=== PATIENT | male | born 1950 | race African-American/Black ===

== ENCOUNTER 2018-11-07 07:32 | Emergency (ER) | payer MEDICARE ==
[2018-11-07 08:04] LABS: #Basophils 0.1 thou/uL (0.0-0.2); #Eosinphils 0.1 thou/uL (0.0-0.7); #Lymphocytes 1.5 thou/uL (1.20-3.40); #Monocytes 0.4 thou/uL (0.11-0.59); #Neutrophils 4.4 thou/uL (1.40-6.50); %Basophils 1.6 % (0.0-1.0); %Eosinophils 0.9 % (0.0-10.0); %Lymphocytes 23.5 % (21.0-51.0); %Monocytes 6.2 % (0.0-10.0); %Neutrophils 67.7 % (42.0-75.0); Hemoglobin 15.5 g/dL (14.0-18.0); Mean Corpuscular HGB CONC 33.4 g/dL (32.0-36.0); Mean Corpuscular Hemoglobin 27.2 pg (27.0-31.0); Mean Corpuscular Volume 81.4 fL (78.0-98.0); Mean Platelet Volume 7.2 fL (7.4-10.4); Platelet Count 248 thou/uL (130-400); RBC Distribution Width 12.6 % (11.5-14.5); Red Blood Cell (RBC) Count 5.69 mill/uL (4.70-6.10); White Blood Cell (WBC) Count 6.5 thou/uL (4.8-10.8)
[2018-11-07] MEDS ORDERED: Lidocaine Viscous Sol 2% 15 ml UD Cup ONE (08:18)
[2018-11-07 08:26] LABS: ALT (SGPT) 27 U/L (8-55); AST (SGOT) 23 U/L (5-34); Albumin 4.2 g/dL (3.4-4.8); Alkaline Phosphatase 138 U/L (40-150); Anion Gap 15 mmol/L (10-20); BUN (Urea Nitrogen) 10 mg/dL (8.4-25.7); Bilirubin, Total 0.6 mg/dL (0.2-1.2); Calc. Creatinine Clearance 0 mL/min (70-130); Calcium 9.6 mg/dL (7.8-10.44); Carbon Dioxide 21 mmol/L (23-31); Chloride 104 mmol/L (98-107); Estimated GFR-MDRD 81; Glucose 105 mg/dL (80-115); Lipase 29 U/L (8-78); Potassium 3.6 mmol/L (3.5-5.1); Protein, Total 8.2 g/dL (5.8-8.1); Sodium 136 mmol/L (136-145)
--- NOTE | 2018-11-07 08:29 | RAD ---
CHEST 1 VIEW AND ABDOMEN 2 VIEWS: Date: 11/07/18 HISTORY: Constipation. FINDINGS/IMPRESSION: Heart size normal. Lungs clear. No free air or differential fluid levels seen. Bowel gas pattern unre markable. Fecal material in colon. No suspicious calcifications identified. POS: [facility]
[2018-11-07 10:10] LABS: Bilirubin Negative (Negative); Blood, Urine Negative (Negative); Clarity CLEAR (Clear); Glucose, Urine (Dipstick) Negative (Negative); Leukocyte Negative (Negative); Nitrite Negative (Negative); Protein, Urine (Dipstick) Negative (Neg-Trace); Specific Gravity, Urine 1.008 (1.002-1.036); Urobilinogen 0.2 mg/dL (0.2-1.0)
== END 2018-11-07 10:30 | disposition home or self-care (01) ==
LOC: ERS 07:32
DX: K59.00 Constipation, unspecified (principal); N40.0 Benign prostatic hyperplasia without lower urinary tract symptoms; I10 Essential (primary) hypertension; G40.909 Epilepsy, unspecified, not intractable, without status epilepticus; Z79.899 Other long term (current) drug therapy
CPT/HCPCS: 36415; 74022; 80053; 81003; 83690; 85025

== ENCOUNTER 2020-06-10 12:27 | Emergency (ER) | payer MEDICARE, OTHER ==
[2020-06-10 13:39] LABS: Hemoglobin 12.3 g/dL (14.0-18.0); Mean Corpuscular HGB CONC 33.9 g/dL (32.0-36.0); Mean Corpuscular Hemoglobin 27.9 pg (27.0-31.0); Mean Corpuscular Volume 82.2 fL (78.0-98.0); Platelet Count 227 thou/uL (130-400); RBC Distribution Width 12.4 % (11.5-14.5); White Blood Cell (WBC) Count 3.4 thou/uL (4.8-10.8)
--- NOTE | 2020-06-10 13:43 | RAD ---
EXAM: Single view of the chest HISTORY: Heart is of breath COMPARISON: 04/24/2016 FINDINGS: Single view of the chest shows a normal sized cardiomediastinal silhouette. There is no remy dence of consolidation, mass, or pleural effusion. Degenerative changes are seen in the spine. IMPRESSION: No evidence of acute cardiopulmonary disease
[2020-06-10 14:01] LABS: ALT (SGPT) 39 U/L (8-55); AST (SGOT) 35 U/L (5-34); Albumin 3.6 g/dL (3.4-4.8); Alkaline Phosphatase 94 U/L (40-110); Anion Gap 13 mmol/L (10-20); BUN (Urea Nitrogen) 12 mg/dL (8.4-25.7); Band 5 % (5-11); Bilirubin, Total 0.4 mg/dL (0.2-1.2); Calc. Creatinine Clearance 0 mL/min (70-130); Calcium 8.7 mg/dL (7.8-10.44); Carbon Dioxide 26 mmol/L (23-31); Chloride 98 mmol/L (98-107); Eosinophils 3 % (0-10); Estimated GFR-MDRD 81; Globulin 3.2 g/dL (2.4-3.5); Glucose 101 mg/dL (83-110); Lymphocytes 26 % (21-51); MDiff Complete? YES; Monocytes 12 % (0-10); Neutrophil 54 % (42-75); Platelet Morphology Comment Appears Adequate; Potassium 3.7 mmol/L (3.5-5.1); Protein, Total 6.8 g/dL (5.8-8.1); Sodium 133 mmol/L (136-145); Target Cells SLIGHT = 2-5 cells (100X) (0-1/hpf)
--- NOTE | 2020-06-10 14:38 | CT ---
CT ANGIOGRAM THORAX WITH IV CONTRAST AND 3-D RECONSTRUCTIONS CLINICAL INDICATION: Shortness of breath with exertion. COMPARISON: None FINDINGS: Pulmonary arteries: No filling defects are seen in the pulmonary arteries to suggest a pulmonary embo aramis. Aorta: The aorta is normal in caliber without evidence of an aortic dissection. Lungs: Minimal peripherally located groundglass densities are seen in each upper lobe and in the righ t middle lobe which are overall nonspecific. Findings could be related to viral pneumonitis. There is atelectasis seen dependently at each lung base. Calcified granuloma is seen in the right middle lo be. No pleural effusion is present. Mediastinum: Minimal vascular calcifications in the coronary arteries. No enlarged mediastinal lymph nodes are seen. A nonspecific mildly prominent superior mediastinal lymph node is present measuring 1.1 cm. Thyroid gland: Grossly normal in appearance for phase of imaging. Osseous structures: Degenerative changes are seen in the spine. Calcifications of the T11-12 and T12- L1 intervertebral discs is present. Chest wall: No abnormality visualized. Upper abdomen: Incompletely imaged hypodense superior pole but renal lesions are partially imaged. Bi lateral renal cysts were noted on prior CT exam on 04/27/2016. There is stable 1.5 cm nodule left adrenal gland which demonstrates an attenuation coefficient on this exam suggesting an adrenal adenom a. Slight nodular contour involving the right adrenal gland is also noted and similar to prior exam as well. IMPRESSION: 1. Nonspecific minimal groundglass densities peripherally located in the upper lobes as well as right middle lobe and lingula. Findings could be related to viral pneumonitis in the correct clinical scenario. 2. No CT evidence of a pulmonary embolus. 3. Left adrenal adenoma with stable nodular appearing thickening involving the right adrenal gland wh en compared to study in 2016. 4. Incomplete imaging of the superior pole bilateral renal cysts which were noted on prior CT exam in 2016.
[2020-06-10] MEDS ORDERED: Iopamidol-370 76% 500 ML 1 ML ONE (15:44)
[2020-06-11 12:47] LABS: SARS-CoV-2 MS2 Positive; SARS-CoV-2 N Gene Positive; SARS-CoV-2 S Gene Positive; SARS-CoV-2 by NAA DETECTED (NotDetected); SARS-CoV-2 orf1ab Positive
== END 2020-06-10 15:29 | disposition home or self-care (01) ==
LOC: ERS 12:27
DX: U07.1 COVID-19 (principal); I10 Essential (primary) hypertension; G40.909 Epilepsy, unspecified, not intractable, without status epilepticus; Z79.899 Other long term (current) drug therapy
CPT/HCPCS: 71045; 71275; 80053; 84484; 85025; 85379; 93005; 99285; U0003; 87635; Q9967

== ENCOUNTER 2022-12-08 11:03 | Outpatient (CLI) | payer MEDICARE | END 2022-12-08 11:04 | disposition home or self-care (01) | LOC: SCSRAD 11:03 | PROVIDERS: ATTEND Family Medicine | DX: M25.512 Pain in left shoulder (principal); M54.2 Cervicalgia; M47.812 Spondylosis without myelopathy or radiculopathy, cervical region | CPT/HCPCS: 72040; 72050 ==